=== PATIENT | male | born 1940 | race Caucasian/White ===

== ENCOUNTER 2022-12-08 11:58 | Emergency (ER) | payer OTHER ==
[~2022-12-08] VITALS: Ht 170.2 cm; Wt 99.8 kg
[2022-12-08] MEDS ORDERED: MOLNUPIRAVIR (200 MG PO (16:00)
== END 2022-12-08 17:04 | disposition home or self-care (01) ==
LOC: ER 11:58
PROVIDERS: Nurse Practitioner Family
DX: U07.1 COVID-19 (principal)

== ENCOUNTER 2022-12-11 13:11 | Outpatient (CLI) | payer OTHER ==
[~2022-12-11 13:11] MED LIST: MOLNUPIRAVIR (200 MG PO
== END 2022-12-11 13:30 | disposition home or self-care (01) ==
LOC: RAD 13:11
PROVIDERS: ATTEND Emergency Medicine
DX: J20.9 Acute bronchitis, unspecified (principal)